=== PATIENT | male | born 1960 | race Caucasian/White ===

== ENCOUNTER 2016-10-31 10:29 | Emergency (ER) | payer MEDICAID ==
[~2016-10-31] VITALS: Ht 182.9 cm; Wt 100.0 kg
[2016-10-31 13:02] VITALS: BP 135/85
== END 2016-10-31 13:10 | disposition home or self-care (01) ==
LOC: EMS 10:30
DX: S80.01XA Contusion of right knee, initial encounter (principal); W54.1XXA Struck by dog, initial encounter; Y93.89 Activity, other specified; Y92.89 Other specified places as the place of occurrence of the external cause; Y99.8 Other external cause status
CPT/HCPCS: 99284